=== PATIENT | male | born 1975 | race African-American/Black ===

== ENCOUNTER 2023-10-12 15:15 | Emergency (ER) | payer MEDICAID ==
[~2023-10-12] VITALS: Ht 195.6 cm; Wt 125.0 kg
[2023-10-12 15:27] VITALS: O2SAT 99
[2023-10-12] MEDS: CARBAMIDE PEROXIDE 6.5% OTIC SOLN 15ML LEFT EAR ONE (17:15)
[2023-10-12] MEDS ORDERED: OFLO5DRO4 LEFT EAR (17:51)
[2023-10-12 18:35] VITALS: BP 133/95; PULSE 88; RESP 18; TEMP 98.9
== END 2023-10-12 18:39 | disposition home or self-care (01) ==
LOC: ER 15:15
DX: H61.22 Impacted cerumen, left ear (principal)
CPT/HCPCS: 99281; 99283

== ENCOUNTER 2023-10-14 17:04 | Emergency (ER) | payer MEDICAID ==
[~2023-10-14] VITALS: Ht 195.6 cm; Wt 122.0 kg
[~2023-10-14 17:04] MED LIST: OFLO5DRO4 LEFT EAR
[2023-10-14 17:19] VITALS: BP 129/82; PULSE 92; RESP 20; TEMP 98.6; O2SAT 99
== END 2023-10-14 18:44 | disposition home or self-care (01) ==
LOC: ER 17:04
DX: H92.02 Otalgia, left ear (principal)
CPT/HCPCS: 99281

== ENCOUNTER 2025-04-14 11:15 | Emergency (ER) | payer MEDICAID ==
[~2025-04-14] VITALS: Ht 180.3 cm; Wt 91.0 kg
[2025-04-14 11:18] VITALS: O2SAT 100
[2025-04-14] MEDS: METHOCARBAMOL 750MG TABLET PO ONE (12:26)
[2025-04-14] MEDS: KETOROLAC 30MG/ML VIAL IM ONE (12:26)
[2025-04-14] MEDS: LIDOCAINE 5% PATCH TOP STA (12:27)
[2025-04-14] MEDS ORDERED: HYDR-4009 MT (13:44)
[2025-04-14] MEDS ORDERED: KETO10TA2 MT (13:44)
[2025-04-14] MEDS ORDERED: METH-774 MT (13:44)
[2025-04-14] MEDS ORDERED: LIDO700A30 TP (13:44)
[2025-04-14 13:57] VITALS: BP 140/86; PULSE 62; RESP 16; TEMP 37.2; O2SAT 100
[2025-04-14] MEDS ORDERED: METH-774 PO (16:33)
== END 2025-04-14 13:58 | disposition home or self-care (01) ==
LOC: ER 11:21
DX: G89.29 Other chronic pain (principal); M54.2 Cervicalgia; R20.0 Anesthesia of skin; Z79.899 Other long term (current) drug therapy; Z98.890 Other specified postprocedural states; Z98.1 Arthrodesis status
CPT/HCPCS: 96372; 99283; J1885; Z7610